=== PATIENT | male | born 1990 | race Caucasian/White ===

== ENCOUNTER 2017-12-13 02:46 | Emergency (ER) | payer SELFPAY ==
[2017-12-13 03:25] VITALS: BP 158/78; PULSE 122; RESP 18; TEMP 99.2; O2SAT 97
[2017-12-13] MEDS ORDERED: SODIUM CHLOR 0.9% 1000 ML INJ 1,000 ML IV SCH (04:55)
[2017-12-13] MEDS ORDERED: VANCOMYCIN INJ 1,000 MG in SODIUM CHLOR 0.9% 250 ML INJ 250 ML IV ONE (05:00)
--- NOTE | 2017-12-13 05:01 | PD ---
HPI Chief Complaint: Skin Problem Time Seen by Provider: 04:57 Travel History International Travel<30 days: No Contact w/Intl Traveler<30days: No Traveled to known affect area: No History of Present Illness HPI 27-year-old male with history of IV heroin abuse presents for evaluation of a rash. For the past 2 weeks he has had skin lesions on his face, neck, arms, a little bit on his legs. He reports that he has been picking at his skin constantly. He denies any itching. He has developed some pain, particularly on one of the sore spots in the back of his neck, secondary to picking. Denies any fevers, chills, cough, congestion, chest pain, shortness of breath, abdominal pain, nausea or vomiting. He has no other complaints at this time. [facility] Social History Alcohol Use: No Tobacco Use: Yes Substance Use: No Allergies-Medications (Allergen,Severity, Reaction): Coded Allergies: Sulfa (Sulfonamide Antibiotics) (Verified Allergy, Unknown, 12/13/17) Reported Meds & Prescriptions Reported Meds & Active Scripts Active Clindamycin (Clindamycin HCl) 300 Mg Cap 300 Mg PO TID 10 Days Review of Systems Except as stated in HPI: all other systems reviewed are Neg Physical Exam Narrative GENERAL: Well-developed well-nourished male in no acute distress SKIN: Warm and dry. Excoriated skin lesions are noted on the extremities and neck and face. There is some impetigo formation on the face and neck. No vesicles, no pustules, no petechiae, no purpura HEAD: Atraumatic. Normocephalic. EYES: Pupils equal and round. No scleral icterus. No injection or drainage. ENT: No nasal bleeding or discharge. Mucous membranes pink and moist. NECK: Trachea midline. No JVD. No lymphadenopathy neck supple full range of motion CARDIOVASCULAR: Regular rate and rhythm. No murmur appreciated. RESPIRATORY: No accessory muscle use. Wheezing is noted bilaterally. GASTROINTESTINAL: Abdomen soft, non-tender, nondistended. Hepatic and splenic margins not palpable. MUSCULOSKELETAL: No obvious deformities. No clubbing. No cyanosis. No edema. Needle track lea noted to the left arm. NEUROLOGICAL: Awake and alert. No obvious cranial nerve deficits. Motor grossly within normal limits. Normal speech. Data Data Last Documented VS Vital Signs Date Time Temp Pulse Resp B/P (MAP) Pulse Ox O2 Delivery O2 Flow Rate FiO2 12/13/17 06:09 99 15 131/76 (94) 97 Room Air 12/13/17 03:25 99.2 Orders Orders Complete Blood Count With Diff (12/13/17 04:55) Comprehensive Metabolic Panel (12/13/17 04:55) Lactic Acid Sepsis Protocol (12/13/17 04:55) Blood Culture (12/13/17 04:55) Chest, Single Ap (12/13/17 04:55) Iv Access Insert/Monitor (12/13/17 04:55) Sodium Chlor 0.9% 1000 Ml Inj (Ns 1000 M (12/13/17 04:55) Vancomycin Inj (Vancomycin Inj) (12/13/17 05:00) Ed Discharge Order (12/13/17 06:15) Labs Laboratory Tests Test 12/13/17 05:25 White Blood Count 13.9 TH/MM3 Red Blood Count 4.74 MIL/MM3 Hemoglobin 14.5 GM/DL Hematocrit 41.3 % Mean Corpuscular Volume 87.1 FL Mean Corpuscular Hemoglobin 30.6 PG Mean Corpuscular Hemoglobin Concent 35.2 % Red Cell Distribution Width 13.1 % Platelet Count 294 TH/MM3 Mean Platelet Volume 8.4 FL Neutrophils (%) (Auto) 78.4 % Lymphocytes (%) (Auto) 10.6 % Monocytes (%) (Auto) 9.5 % Eosinophils (%) (Auto) 1.2 % Basophils (%) (Auto) 0.3 % Neutrophils # (Auto) 10.9 TH/MM3 Lymphocytes # (Auto) 1.5 TH/MM3 Monocytes # (Auto) 1.3 TH/MM3 Eosinophils # (Auto) 0.2 TH/MM3 Basophils # (Auto) 0.0 TH/MM3 CBC Comment DIFF FINAL Differential Comment Blood Urea Nitrogen 13 MG/DL Creatinine 1.07 MG/DL Random Glucose 85 MG/DL Total Protein 7.9 GM/DL Albumin 4.5 GM/DL Calcium Level 8.9 MG/DL Alkaline Phosphatase 53 U/L Aspartate Amino Transf (AST/SGOT) 30 U/L Alanine Aminotransferase (ALT/SGPT) 50 U/L Total Bilirubin 1.9 MG/DL Sodium Level 136 MEQ/L Potassium Level 3.4 MEQ/L Chloride Level 99 MEQ/L Carbon Dioxide Level 27.9 MEQ/L Anion Gap 9 MEQ/L Estimat Glomerular Filtration Rate 84 ML/MIN Lactic Acid Level 0.9 mmol/L [facility] Medical Decision Making Medical Screen Exam Complete: Yes Emergency Medical Condition: Yes Medical Record Reviewed: Yes Differential Diagnosis Skin picking disorder versus impetigo versus scabies versus cellulitis Narrative Course The patient has developed impetigo secondary to skin picking disorder which is secondary to IV heroin abuse. He is noted to be tachycardic in triage. Lab work, blood cultures were ordered. He will be given IV vancomycin. CBC reveals a WBC count of 13.9 otherwise unremarkable. CMP reveals a potassium of 3.4 otherwise unremarkable. Lactic acid within normal limits. Upon reexamination his heart rate has normalized. At this point in time the plan is to treat his impetigo with clindamycin. Blood cultures are pending and will be followed up on. I discussed signs and symptoms that would warrant returning to the emergency room. He is stable for discharge. Diagnosis Primary Impression: Skin-picking disorder Additional Impressions: Impetigo IV drug user Referrals: [facility] Additional Instructions: Consider attending a detoxification programs such as [facility]. Avoid picking at the skin. Wash your skin daily with soap and water and apply antibiotic cream. Take the antibiotics as prescribed. Return for any acutely new or worsening symptoms such as fevers, chest pain, worsening skin redness and swelling. Med/Other Pt SpecificInfo: Prescription(s) given Scripts Clindamycin (Clindamycin) 300 Mg Cap 300 MG PO TID for Infection for 10 Days, CAP 0 Refills Prov: Rudy Priest MD 12/13/17 Disposition: 01 DISCHARGE HOME Condition: Stable Garcia Celaya Dec 13, 2017 05:01
--- NOTE | 2017-12-13 05:25 | RADRPT ---
EXAM DATE/TIME: 12/13/2017 04:59 [facility] COMPARISON: No previous studies available for comparison. INDICATIONS : Face and body sores and rash post IV drug use. MEDICAL HISTORY : IV Drug use SURGICAL HISTORY : None. ENCOUNTER: Initial ACUITY: 1 week PAIN SCORE: 0/10 LOCATION: Bilateral chest FINDINGS: A single view of the chest demonstrates the lungs to be symmetrically aerated without evidence of mas s, infiltrate or effusion. The cardiomediastinal contours are unremarkable. Osseous structures are intact. CONCLUSION: Normal one view chest x-ray. Baldomero Amaro MD on December 13, 2017 at 5:24 Board Certified Radiologist. This report was verified electronically.
[2017-12-13 05:40] LABS: AUTOMATED NEUTROPHIL # 10.9 TH/MM3 (1.8-7.7); BASOPHIL % 0.3 % (0.0-2.0); EOSINOPHIL # 0.2 TH/MM3 (0-0.4); EOSINOPHIL % 1.2 % (0.0-4.0); HEMATOCRIT 41.3 % (39.0-51.0); HEMOGLOBIN 14.5 GM/DL (13.0-17.0); LYMPH % 10.6 % (9.0-44.0); LYMPHOCYTE # 1.5 TH/MM3 (1.0-4.8); MEAN CELL VOLUME 87.1 FL (80.0-100.0); MEAN CORPUSCULAR HEMOGLOBIN 30.6 PG (27.0-34.0); MEAN CORPUSCULAR HGB CONC 35.2 % (32.0-36.0); MEAN PLATELET VOLUME 8.4 FL (7.0-11.0); MONO % 9.5 % (0.0-8.0); MONOCYTE # 1.3 TH/MM3 (0-0.9); NEUT % 78.4 % (16.0-70.0); PLATELET COUNT 294 TH/MM3 (150-450); RED BLOOD COUNT 4.74 MIL/MM3 (4.50-5.90); RED CELL DISTRIBUTION WIDTH 13.1 % (11.6-17.2); WHITE BLOOD COUNT 13.9 TH/MM3 (4.0-11.0)
[2017-12-13 06:09] VITALS: BP 131/76; PULSE 99; RESP 15; O2SAT 97
[2017-12-13 06:10] LABS: ALBUMIN 4.5 GM/DL (3.4-5.0); ALT (GPT) 50 U/L (12-78); AST (GOT) 30 U/L (15-37); BICARBONATE 27.9 MEQ/L (21.0-32.0); BLOOD UREA NITROGEN 13 MG/DL (7-18); CALCIUM 8.9 MG/DL (8.5-10.1); CHLORIDE 99 MEQ/L (98-107); CREATININE 1.07 MG/DL (0.60-1.30); GLOMERULAR FILTRATION RATE 84 ML/MIN (>89); GLUCOSE,RANDOM 85 MG/DL (74-106); SODIUM (NA) 136 MEQ/L (136-145)
[2017-12-13 06:11] LABS: ALKALINE PHOSPHATASE 53 U/L (45-117); TOTAL BILIRUBIN ADULT 1.9 MG/DL (0.2-1.0); TOTAL PROTEIN 7.9 GM/DL (6.4-8.2)
[2017-12-13] MEDS ORDERED: CLIN300C5 PO (06:13)
== END 2017-12-13 07:29 | disposition home or self-care (01) ==
LOC: NEPD 02:46
DX: F42.4 Excoriation (skin-picking) disorder (principal); L01.00 Impetigo, unspecified; F11.10 Opioid abuse, uncomplicated; Z72.0 Tobacco use
CPT/HCPCS: 71045; 80053; 83605; 85025; 87040; 96374; 99284; J3370; J7030; J7050